=== PATIENT | female | born 1945 | race Caucasian/White ===

== ENCOUNTER → 2020-02-08 | Day surgery (SDC) | payer OTHER ==
--- OUTSIDE RECORDS SUMMARY | 2020-02-08 20:06 | XMS ---
:1945 Author [facility] Support Name Relationship Address Phone RE Unavailable Unavailable Unavailable KIRBY MCQUEEN, [place] [address] Re-disclosure Warning The records that you are about to access may contain information from federally- assisted alcohol or drug abuse programs. If such information is present, then the following federally mandated warning applies: This information has been disclosed to you from records protected by federal confidentiality rules (42 CFR part 2). The federal rules prohibit you from making any further disclosure of this information unless further disclosure is expressly permitted by the written consent of the person to whom it pertains or as otherwise permitted by 42 CFR part 2. A general authorization for the release of medical or other information is NOT sufficient for this purpose. The Federal rules restrict any use of the information to criminally investigate or prosecute any alcohol or drug abuse patient.The records that you are about to access may contain highly sensitive health information, the redisclosure of which is protected by Article 27-F of the [facility] Public Health law. If you continue you may haveaccess to information: Regarding HIV / AIDS; Provided by facilities licensed or operated by the [facility] Office of Mental Health; or Provided by the [facility] Office for People With Developmental Disabilities. If such information is present, then the following [facility] mandated warning applies: This information has been disclosed to you from confidential records which are protected by state law. State law prohibits you from making any further disclosure of this information without the specific written consent of the person to whom it pertains, or as otherwise permitted by law. Any unauthorized further disclosure in violation of state law may result in a fine or retirement sentence or both. A general authorization for the release of medical or other information is NOT sufficient authorization for further disclosure. Insurance Providers Payer name Policy type Policy ID Covered Covered alliance party's Policy P nathaniel / Coverage alliance party ID relationship to [facility] ormation type little [place] [id number] [facility] (MEDICARE)
--- NOTE | 2020-02-11 18:23 | PATH ---
Cytology Non-Gynecological Report Patient Name: JEANIE SILVEIRA [facility]. Rec. #: [id number] /Age/Gender: 1945 (Age: 75) / F Account: [id number] Location: RADIOLOGY INTER Taken: 02/08/2020 Received: 02/08/2020 Reported: 02/11/2020 Physicians: Hadley Aldridge M.D. Specimen(s) Received THYROID, RIGHT LOBE, FINE NEEDLE ASPIRATION Clinical History Right lobe, 1.47 x 0.9 cm Final Diagnosis THYROID, RIGHT LOBE, FINE NEEDLE ASPIRATION: SATISFACTORY FOR EVALUATION. BETHESDA CLASS II: BENIGN. CYTOLOGIC FINDINGS ARE CONSISTENT WITH A BENIGN FOLLICULAR NODULE WITH POST-HEMORRHAGIC CHANGE. FOLLICULAR CELLS WITH FOCAL REACTIVE CHANGES IN A BACKGROUND OF ABUNDANT COLLOID AND HEMOSIDERIN-LADEN MACROPHAGES. Electronically Signed April Oconnell M.D. Gross Description Received are 6 direct smears, 3 of which are air-dried and Diff-Quik stained, and 3 of which are alcohol fixed and Pap stained. Also received is 20 ml of bloody formalin from which one cellblock is prepared.
== END | disposition home or self-care (01) ==
LOC: JRADIR 09:23 → EDSTATUS 10:00
PROVIDERS: ATTEND Internal Medicine Endocrinology, Diabetes & Metabolism
PROC: 0G9H3ZX Drainage of Right Thyroid Gland Lobe, Percutaneous Approach, Diagnostic (ICD-10-PCS; principal; 2020-02-08)
DX: E04.1 Nontoxic single thyroid nodule (principal)
CPT/HCPCS: 76942; 88173; 88305-TC

== ENCOUNTER → 2020-02-22 | Day surgery (SDC) | payer OTHER ==
--- OUTSIDE RECORDS SUMMARY | 2020-02-22 09:48 | XMS ---
:1945 [facility] Support Name Relationship Address Phone RE Unavailable Unavailable Unavailable KIRBY SR, [place] [address] Re-disclosure Warning The records that you are [...] is protected by Article 27-F of the [facility] Public Health law. If you continue you may haveaccess to information: Regarding HIV / AIDS; Provided by facilities licensed or operated by the [facility] Office of Mental Health; or Provided by the [facility] Office for People With Developmental Disabilities. If such information is present, then the following [facility] mandated warning applies: This information has been [...] law may result in a fine or usp sentence or both. A general authorization for the release of medical or other information is NOT sufficient authorization for further disclosure. Insurance Providers Payer name Policy type Policy ID Covered Covered alliance party's Policy P nathaniel / Coverage alliance party ID relationship to [facility] ormation type little [place] [id number] [facility] (MEDICARE)
--- NOTE | 2020-02-23 18:38 | PATH ---
Cytology Non-Gynecological Report Patient Name: JEANIE SILVEIRA [facility]. Rec. #: [id number] /Age/Gender: 1945 (Age: 75) / F Account: [id number] Location: RADIOLOGY INTER Taken: 02/22/2020 Received: 02/22/2020 Reported: 02/23/2020 Physicians: Hadley Aldridge M.D. Specimen(s) Received THYROID, LEFT, FINE NEEDLE ASPIRATION Clinical History Left thyroid, 3.16 x 1.94 x 2.42 cm Final Diagnosis THYROID, LEFT, FINE NEEDLE ASPIRATION: SATISFACTORY FOR EVALUATION. BETHESDA CLASS II: BENIGN. CYTOLOGIC FINDINGS ARE CONSISTENT WITH A BENIGN FOLLICULAR NODULE. FEW CLUSTERS OF SMALL FOLLICULAR CELLS AND SCANT COLLOID PRESENT. Electronically Signed April Oconnell M.D. Gross Description Received are eight direct smears, four of which are air-dried and Diff-Quik stained, and four of which are alcohol fixed and Pap stained. Also received is 20 ml of bloody formalin from which one cellblock is prepared.
== END | disposition home or self-care (01) ==
LOC: JRADIR 09:22
PROVIDERS: ATTEND Internal Medicine Endocrinology, Diabetes & Metabolism
PROC: 0G9G3ZX Drainage of Left Thyroid Gland Lobe, Percutaneous Approach, Diagnostic (ICD-10-PCS; principal; 2020-02-22)
PROC: 0G9H3ZX Drainage of Right Thyroid Gland Lobe, Percutaneous Approach, Diagnostic (ICD-10-PCS; 2020-02-22)
DX: E04.2 Nontoxic multinodular goiter (principal)
CPT/HCPCS: 76942; 88173; 88305-TC

== ENCOUNTER → 2020-03-01 | Day surgery (SDC) | payer OTHER ==
--- NOTE | 2020-03-02 16:19 | PATH ---
Cytology Non-Gynecological Report Patient Name: JEANIE SILVEIRA [facility]. Rec. #: [id number] /Age/Gender: 1945 (Age: 75) / F Account: [id number] Location: RADIOLOGY INTER Taken: 03/01/2020 Received: 03/01/2020 Reported: 03/02/2020 Physicians: Hadley Aldridge M.D. Specimen(s) Received THYROID, RIGHT LOBE, FINE NEEDLE ASPIRATION Clinical History Right lobe, 1.77 x 0.95 x 1.61 cm Final Diagnosis THYROID, RIGHT LOBE, FINE NEEDLE ASPIRATION: UNSATISFACTORY FOR EVALUATION. BETHESDA CLASS I: NON-DIAGNOSTIC. SCANT THIN COLLOID IN HEMORRHAGIC BACKGROUND PRESENT. Comment: The specimen has insufficient follicular cell clusters and/or colloid; and suboptimal for complete cytopathologic evaluation according to [facility] for Reporting Thyroid FNA. If the nodule has worrisome ultrasound imaging properties, suggest repeat FNA, as warranted. Electronically Signed April Oconnell M.D. Gross Description Received are eight direct smears, four of which are air-dried and Diff-Quik stained, and four of which are alcohol fixed and Pap stained. Also received is 20 ml of bloody formalin from which one cellblock is prepared.
== END | disposition home or self-care (01) ==
LOC: JRADIR 10:17
PROVIDERS: ATTEND Internal Medicine Endocrinology, Diabetes & Metabolism
PROC: 0G9G3ZX Drainage of Left Thyroid Gland Lobe, Percutaneous Approach, Diagnostic (ICD-10-PCS; principal; 2020-03-01)
DX: E04.1 Nontoxic single thyroid nodule (principal)
CPT/HCPCS: 76942; 88173; 88305-TC